=== PATIENT | female | born 1960 | race Asian ===

== ENCOUNTER 2019-10-22 18:26 | Emergency (ER) | payer OTHER ==
[~2019-10-22] VITALS: Ht 152.4 cm; Wt 99.8 kg
[2019-10-22 19:18] VITALS: Ht 152.4 cm; Wt 99.8 kg
[2019-10-22 21:19] VITALS: BP 131/70
== END 2019-10-22 21:19 | disposition home or self-care (01) ==
LOC: ED 18:26
DX: S01.81XA Laceration without foreign body of other part of head, initial encounter (principal); I10 Essential (primary) hypertension; E11.9 Type 2 diabetes mellitus without complications; Z98.890 Other specified postprocedural states; W01.198A Fall on same level from slipping, tripping and stumbling with subsequent striking against other object, initial encounter; Y93.89 Activity, other specified; Y92.89 Other specified places as the place of occurrence of the external cause; Y99.8 Other external cause status
CPT/HCPCS: 90715; J2001